=== PATIENT | male | born 1985 | race Caucasian/White ===

== ENCOUNTER 2020-06-08 21:11 | Emergency (ER) | payer OTHER ==
[~2020-06-08] VITALS: Ht 175.3 cm; Wt 88.6 kg
[2020-06-08 21:51] LABS: BILIRUBIN,URINE NEGATIVE (NEGATIVE); CLARITY,URINE CLEAR; COLOR,URINE YELLOW; GLUCOSE, URINE (UA) NEGATIVE (NEGATIVE); KETONES,URINE NEGATIVE (NEGATIVE); LEUKOCYTE ESTERASE ,URINE NEGATIVE (NEGATIVE); NITRITE,URINE NEGATIVE (NEGATIVE); PROTEIN,URINE NEGATIVE (NEGATIVE)
[2020-06-08 21:52] LABS: BASOPHILS # (AUTO) 0.1 10^3/uL (0.0-0.1); BASOPHILS % (AUTO) 1 % (0-10); EOSINOPHILS # (AUTO) 0.1 10^3/uL (0.0-0.3); EOSINOPHILS % (AUTO) 1 % (0-10); HEMATOCRIT 44 % (40-54); HEMOGLOBIN 15.4 g/dL (13.3-17.7); LYMPHOCYTES # (AUTO) 2.1 10^3/uL (1.0-4.0); LYMPHOCYTES % (AUTO) 17 % (12-44); MEAN CORPUSCULAR HEMOGLOBIN 29 pg (25-34); MEAN CORPUSCULAR HGB CONC 35 g/dL (32-36); MEAN CORPUSCULAR VOLUME 84 fL (80-99); MONOCYTES % (AUTO) 8 % (0-12); NEUTROPHILS # (AUTO) 8.5 10^3/uL (1.8-7.8); NEUTROPHILS % (AUTO) 72 % (42-75); PLATELET COUNT 235 10^3/uL (130-400); WHITE BLOOD COUNT 11.8 10^3/uL (4.3-11.0)
[2020-06-08 21:57] LABS: BACTERIA,URINE NEGATIVE /HPF
[2020-06-08 22:05] LABS: ALBUMIN 4.3 GM/DL (3.2-4.5); CHLORIDE 106 MMOL/L (98-107); SODIUM 138 MMOL/L (135-145)
[2020-06-08 22:07] LABS: CALCIUM 8.8 MG/DL (8.5-10.1)
[2020-06-08 22:08] LABS: GLUCOSE 88 MG/DL (70-105); TOTAL PROTEIN 7.3 GM/DL (6.4-8.2)
[2020-06-08 22:09] LABS: CARBON DIOXIDE 23 MMOL/L (21-32)
[2020-06-08 22:10] LABS: BILIRUBIN,TOTAL 0.5 MG/DL (0.1-1.0)
[2020-06-08 22:11] LABS: ALKALINE PHOSPHATASE 82 U/L (40-136); GFR ESTIMATED > 60
[2020-06-08 22:12] LABS: BUN/CREATININE RATIO 8
[2020-06-08 22:14] LABS: ALANINE AMINOTRANSFERASE 57 U/L (0-55)
[2020-06-08] MEDS ORDERED: LACTATED RINGERS 1,000 ML IV ONE (22:15)
[2020-06-08] MEDS ORDERED: HYOSCYAMINE 0.125 MG (LEVSIN) TAB PO ONE (22:15)
--- NOTE | 2020-06-08 22:21 | ED Abdominal Pain ---
General Chief Complaint: Abdominal/GI Problems Stated Complaint: ABD PAIN;DIARRHEA Source of Information: Patient, Family (mother) Exam Limitations: No Limitations (MARILU BENOIT MED STUDENT) History of Present Illness Date Seen by Provider: Jun 08, 2020 Time Seen by Provider: 21:45 Initial Comments Patient to ED with complaints of abdominal pain and severe diarrhea. He states the increase in number of stools and pain began 3 days ago. He was treated for flu like symptoms with Augmentin in early April. He states at that time he was having respiratory and sinus complaints with occasional diarrhea. He began the antibiotic treatment on 05/20. His symptoms overall improved until the pain and diarrhea began 3 days ago. The pain is cramping and sharp, 8/10 and generalized in nature. He states the stools are dark and coffee ground in appearance. He had 20 stools in 4 hours today. He has been taking pepto bismol and tylenol with minimal alleviation of his symptoms. No improvement of pain with defecation. He denies nausea, vomiting, respiratory symptoms, fevers/chills. No recent sick contacts. He states soft stools are his baseline and he has struggled with diarrhea for the last 10+ years. He has a colonoscopy done 10 years ago that was unremarkable. Timing/Duration: 3-4 Days Severity/Quality: Cramping, Sharp Location: Generalized Abdomen Activities at Onset: None Modifying Factors: Improves With Analgesics (tylenol) Associated Symptoms: No Back Pain, No Chest Pain, No Fever/Chills, No Headache, No Heartburn, No Nausea/Vomiting, No Shortness of Air; Weakness (MONTANA BENOIT,RIANA STUDENT) Allergies and Home Medications Allergies Coded Allergies: No Known Drug Allergies (Unverified , 06/08/20) Patient Home Medication List Home Medication List Reviewed: Yes (MARILU BENOIT,RIANA STUDENT) Review of Systems Review of Systems Constitutional: No chills, No fever; weakness EENTM: No Blurred Vision, No Double Vision Respiratory: Denies Cough, Denies Shortness of Air Cardiovascular: Denies Chest Pain Gastrointestinal: Abdominal Pain, Diarrhea; Denies Nausea; Poor Appetite, Vomiting Genitourinary: Denies Burning, Denies Frequency, Denies Hematuria, Denies Urgency Musculoskeletal: No back pain Skin: other (irritation from excessive wiping ) (MARILU BENOIT,RIANA STUDENT) Physical Exam Vital Signs Vital Signs - First Documented 06/08/20 21:28 Temp 36.7 Pulse 76 Resp 18 B/P (MAP) 128/88 (101) Pulse Ox 96 O2 Delivery Room Air (ANGEL RO MD) Vital Signs Capillary Refill : (MARILU BENOIT,MED STUDENT) Height/Weight/BMI Height: '" Weight: lbs. oz. kg; BMI Method: General Appearance: WD/WN, no apparent distress Neck: full range of motion, supple Respiratory: chest non-tender, lungs clear, normal breath sounds, no respiratory distress, no accessory muscle use Cardiovascular: regular rate, rhythm, no murmur Peripheral Pulses: 2+ Radial Pulses (R), 2+ Radial Pulses (L) Gastrointestinal: soft, no organomegaly, abnormal bowel sounds (hypoactive in all 4 quadrants) Extremities: no pedal edema, no calf tenderness Back: no CVA tenderness Neurologic/Psychiatric: alert, normal mood/affect, oriented x 3 Skin: normal color, warm/dry (MARILU BENOIT,MED STUDENT) Progress/Results/Core Measures Results/Orders Lab Results Laboratory Tests Test 06/08/20 21:30 06/08/20 23:15 Range/Units White Blood Count 11.8 H 4.3-11.0 10^3/uL Red Blood Count 5.26 4.30-5.52 10^6/uL Hemoglobin 15.4 13.3-17.7 g/dL Hematocrit 44 40-54 % Mean Corpuscular Volume 84 80-99 fL Mean Corpuscular Hemoglobin 29 25-34 pg Mean Corpuscular Hemoglobin Concent 35 32-36 g/dL Red Cell Distribution Width 12.9 10.0-14.5 % Platelet Count 235 130-400 10^3/uL Mean Platelet Volume 9.0 9.0-12.2 fL Immature Granulocyte % (Auto) 0 % Neutrophils (%) (Auto) 72 42-75 % Lymphocytes (%) (Auto) 17 12-44 % Monocytes (%) (Auto) 8 0-12 % Eosinophils (%) (Auto) 1 0-10 % Basophils (%) (Auto) 1 0-10 % Neutrophils # (Auto) 8.5 H 1.8-7.8 10^3/uL Lymphocytes # (Auto) 2.1 1.0-4.0 10^3/uL Monocytes # (Auto) 1.0 0.0-1.0 10^3/uL Eosinophils # (Auto) 0.1 0.0-0.3 10^3/uL Basophils # (Auto) 0.1 0.0-0.1 10^3/uL Immature Granulocyte # (Auto) 0.1 0.0-0.1 10^3/uL Urine Color YELLOW Urine Clarity CLEAR Urine pH 6.0 5-9 Urine Specific [place] 1.020 1.016-1.022 Urine Protein NEGATIVE NEGATIVE Urine Glucose (UA) NEGATIVE NEGATIVE Urine Ketones NEGATIVE NEGATIVE Urine Nitrite NEGATIVE NEGATIVE Urine Bilirubin NEGATIVE NEGATIVE Urine Urobilinogen 0.2 < = 1.0 MG/DL Urine Leukocyte Esterase NEGATIVE NEGATIVE Urine RBC (Auto) TRACE-I NEGATIVE Urine RBC NONE /HPF Urine WBC NONE /HPF Urine Squamous Epithelial Cells NONE /HPF Urine Renal Epithelial Cells NONE /HPF Urine Crystals NONE /LPF Urine Bacteria NEGATIVE /HPF Urine Casts NONE /LPF Urine Mucus NEGATIVE /LPF Urine Culture Indicated NO Sodium Level 138 135-145 MMOL/L Potassium Level 4.0 3.6-5.0 MMOL/L Chloride Level 106 98-107 MMOL/L Carbon Dioxide Level 23 21-32 MMOL/L Anion Gap 9 5-14 MMOL/L Blood Urea Nitrogen 8 7-18 MG/DL Creatinine 1.00 0.60-1.30 MG/DL Estimat Glomerular Filtration Rate > 60 BUN/Creatinine Ratio 8 Glucose Level 88 70-105 MG/DL Calcium Level 8.8 8.5-10.1 MG/DL Corrected Calcium 8.6 8.5-10.1 MG/DL Magnesium Level 2.0 1.6-2.4 MG/DL Total Bilirubin 0.5 0.1-1.0 MG/DL Aspartate Amino Transf (AST/SGOT) 27 5-34 U/L Alanine Aminotransferase (ALT/SGPT) 57 H 0-55 U/L Alkaline Phosphatase 82 40-136 U/L C-Reactive Protein High Sensitivity 2.52 H 0.00-0.50 MG/DL Total Protein 7.3 6.4-8.2 GM/DL Albumin 4.3 3.2-4.5 GM/DL Lipase 10 8-78 U/L Stool Occult Blood Immunoassay POSITIVE H NEGATIVE (ANGEL RO MD) My Orders Orders - ANGEL RO MD Magnesium (06/08/20 22:03) Stool Culture (06/08/20 22:04) Fecal Wbc (06/08/20 22:04) C Difficile Ag + Toxin A/B. (06/08/20 22:04) Ed Iv/Invasive Line Start (06/08/20 22:05) Lactated Ringers (Lr 1000 Ml Iv Solution (06/08/20 22:15) Hyoscyamine Sl Tablet (Levsin Sl Tablet) (06/08/20 22:15) Hs C Reactive Protein (06/08/20 23:40) Lipase (06/08/20 23:40) Metronidazole Tablet (Flagyl Tablet) (06/09/20 00:15) Ciprofloxacin Tablet (Cipro Tablet) (06/09/20 00:15) (ANGEL RO MD) Medications Given in ED Current Medications Medications Dose Ordered Sig/Maria Fernanda Route Start Time Stop Time Status Last Admin Dose Admin Hyoscyamine Sulfate 0.25 mg ONCE ONCE PO 06/08/20 22:15 06/08/20 22:16 DC 06/08/20 22:48 0.25 MG Lactated Ringer's 1,000 ml @ 0 mls/hr Q0M ONCE IV 06/08/20 22:15 06/08/20 22:16 DC 06/08/20 22:48 999 MLS/HR (ANGEL RO MD) Vital Signs/I&O 06/08/20 21:28 Temp 36.7 Pulse 76 Resp 18 B/P (MAP) 128/88 (101) Pulse Ox 96 O2 Delivery Room Air (ANGEL RO MD) Departure Impression Primary Impression: Diarrhea Qualified Codes: R19.7 - Diarrhea, unspecified Additional Impressions: Generalized abdominal pain Positive occult stool blood test Departure-Patient Inst. Referrals: NO,LOCAL PHYSICIAN (PCP) Primary Care Physician Patient Instructions: Abdominal Pain, Adult ED, Clostridioides difficile, Diarrhea in Adolescents and Adults Add. Discharge Instructions: Drink plenty of clear liquids. Gradual advance your diet with small quantities of bland food as tolerated. Avoid milk products or fatty or greasy foods until your diarrhea resolves. Establish with a primary care provider and follow-up as soon as possible. You will need to follow-up on your stool cultures next week. Complete your antibiotics as prescribed. You may use Tylenol (acetaminophen) up to 1000 mg every 6 hours as needed for pain. Use Ultram (tramadol) as a backup pain medication. This may cause drowsiness so use with caution. For abdominal cramping you may use Levsin (hyoscyamine) as prescribed. Call with questions or concerns. Return to the emergency room if you have worsening symptoms or develop new symptoms such as frankly bloody stools, fever, etc. All discharge instructions reviewed with patient and/or family. Voiced understanding. Scripts Tramadol HCl (Ultram) 50 Mg Tablet 50 MG PO Q6H PRN for PAIN-BREAKTHROUGH, #10 TAB Prov: ANGEL RO MD 06/09/20 Hyoscyamine Sulfate (Levsin-Sl) 0.125 Mg Tab.subl 1-2 TAB SL Q4H PRN for CRAMPS, #10 TAB 0 Refills Prov: ANGEL RO MD 06/09/20 Ciprofloxacin HCl (Ciprofloxacin HCl) 500 Mg Tablet 500 MG PO BID, #14 TAB Prov: ANGEL RO MD 06/09/20 Metronidazole (Flagyl) 500 Mg Tablet 500 MG PO Q6H, #28 TAB Prov: ANGEL RO MD 06/09/20 MARILU BENOIT,MED STUDENT Jun 08, 2020 22:21 ANGEL RO MD Jun 09, 2020 00:21
[2020-06-09] MEDS ORDERED: HYOSCYAMINE 0.125 MG (LEVSIN) TAB SL ONE (00:15)
[2020-06-09] MEDS ORDERED: metroNIDAZOLE 500 MG (FLAGYL) TAB PO ONE (00:15)
[2020-06-09] MEDS ORDERED: CIPROFLOXACIN 500 MG (CIPRO) TABLET PO ONE (00:15)
[2020-06-09] MEDS ORDERED: METR500T PO (00:18)
[2020-06-09] MEDS ORDERED: TRAM-42 PO (00:18)
[2020-06-09] MEDS ORDERED: CIPR500T5 PO (00:18)
[2020-06-09] MEDS ORDERED: HYOS0.1283 SL (00:18)
[2020-06-09 00:30] VITALS: BP 122/79
== END 2020-06-09 00:35 | disposition home or self-care (01) ==
LOC: ER 21:16
DX: R19.7 Diarrhea, unspecified (principal); R10.84 Generalized abdominal pain; K92.1 Melena
CPT/HCPCS: 36415; 80053; 81000; 82274; 83690; 83735; 85025; 86141; 87015; 87045; 87046; 87324; 87449; 87493; 87899